=== PATIENT | male | born 1985 | race Caucasian/White ===

== ENCOUNTER 2017-01-20 10:31 | Emergency (ER) | payer OTHER ==
[~2017-01-20] VITALS: Ht 193 cm; Wt 90.7 kg
[2017-01-20 10:34] VITALS: BP 120/77
[2017-01-20] MEDS ORDERED: NEXIUM40 MG PO (11:03)
[2017-01-20] MEDS ORDERED: PROBIOTIC1 EAC2 (11:03)
== END 2017-01-20 11:12 | disposition home or self-care (01) ==
LOC: ER 10:31
DX: L72.3 Sebaceous cyst (principal); E11.9 Type 2 diabetes mellitus without complications; F17.210 Nicotine dependence, cigarettes, uncomplicated; F15.90 Other stimulant use, unspecified, uncomplicated